=== PATIENT | female | born 1975 | race Caucasian/White ===

== ENCOUNTER 2016-09-06 14:28 | Emergency (ER) | payer OTHER | END 2016-09-06 17:00 | disposition home or self-care (01) | LOC: ER1 14:28 | DX: N76.4 Abscess of vulva (principal); I10 Essential (primary) hypertension; E78.5 Hyperlipidemia, unspecified; F17.200 Nicotine dependence, unspecified, uncomplicated; Z88.0 Allergy status to penicillin; Z79.899 Other long term (current) drug therapy | CPT/HCPCS: 10060; 87070; 87205; 99283 ==